=== PATIENT | male | born 1990 | race Two or more races ===

== ENCOUNTER 2018-07-21 21:33 | Emergency (ER) | payer MEDICAID ==
[~2018-07-21] VITALS: Ht 175.3 cm; Wt 59.2 kg
[2018-07-21 21:43] VITALS: BP 118/78
[2018-07-21] MEDS ORDERED: LIDOCAINE-MPF 1%, 5ML ONE (22:16)
[2018-07-21] MEDS ORDERED: DIPH,PERTUSS(ACELL),TET VAC/PF 0.5 ML IM-VACC ONE ×2 (22:16→22:30)
[2018-07-21] MEDS ORDERED: LIDOCAINE-MPF 1%, 5ML INFIL ONE (22:30)
[2018-07-21] MEDS ORDERED: BACITRACIN ZINC OINT 500U/GM, 0.9 GM ONE (23:17)
== END 2018-07-21 23:25 | disposition home or self-care (01) ==
LOC: ED 23:18
DX: S01.551A Open bite of lip, initial encounter (principal); Z72.9 Problem related to lifestyle, unspecified; F17.210 Nicotine dependence, cigarettes, uncomplicated; W54.0XXA Bitten by dog, initial encounter; Y93.89 Activity, other specified; Y92.410 Unspecified street and highway as the place of occurrence of the external cause; Y99.8 Other external cause status
CPT/HCPCS: 12051; 90471; 90715

== ENCOUNTER 2018-07-29 10:55 | Emergency (ER) | payer MEDICAID ==
[2018-07-29 11:11] VITALS: BP 155/85
== END 2018-07-29 11:53 | disposition home or self-care (01) ==
LOC: ED 11:40
DX: S01.511D Laceration without foreign body of lip, subsequent encounter (principal); F17.200 Nicotine dependence, unspecified, uncomplicated; X58.XXXD Exposure to other specified factors, subsequent encounter
CPT/HCPCS: 99281